=== PATIENT | male | born 1980 | race Caucasian/White ===

== ENCOUNTER 2017-09-05 10:13 | Outpatient (CLI) | payer BC ==
--- NOTE | 2017-09-05 14:12 | RAD ---
LEFT ANKLE 3 VIEWS: HISTORY: Pain. COMPARISON: None. FINDINGS: There is narrowing of the medial ankle mortise with subchondral cyst formation and osteophyte format ion. There are also enthesopathic changes of the Achilles insertion with chronic remodeling. 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 No acute fracture or malali gnment. POS: [facility]
== END 2017-09-05 10:14 | disposition home or self-care (01) ==
LOC: RAD-FRANK 10:13
PROVIDERS: ATTEND Nurse Practitioner Family
DX: S99.912A Unspecified injury of left ankle, initial encounter (principal); Q66.89 Other specified congenital deformities of feet

== ENCOUNTER 2018-03-24 12:35 | Emergency (ER) | payer BC, OTHER ==
[2018-03-24] MEDS ORDERED: Adacel (T-DAP) 0.5 ML VIAL ONE (13:16)
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
== END 2018-03-24 14:39 | disposition home or self-care (01) ==
LOC: ERS 12:35
DX: S83.91XA Sprain of unspecified site of right knee, initial encounter (principal); V43.62XA Car passenger injured in collision with other type car in traffic accident, initial encounter; Z23 Encounter for immunization
CPT/HCPCS: 90471; 90715